=== PATIENT | female | born 1960 | race Caucasian/White ===

== ENCOUNTER 2022-07-02 12:53 | Emergency (ER) | payer BC ==
[~2022-07-02] VITALS: Ht 165.1 cm; Wt 73.5 kg
[~2022-07-02 12:53] MED LIST: PROM25TA27
[2022-07-02 12:58] VITALS: BP 134/81
[2022-07-02] MEDS ORDERED: BACI-416 TP (14:43)
[2022-07-02] MEDS ORDERED: NAPR-1704 PO (14:43)
[2022-07-02] MEDS ORDERED: KETOROLAC 30 MG/ML VIAL IM ONE (14:45)
[2022-07-02] MEDS ORDERED: BACITRACIN OINT 500 UNITS/GM PKT TP ONE (14:45)
[2022-07-02 15:00] VITALS: BP 129/77
--- NOTE | 2022-07-02 15:01 | NUR ---
ASSUMED PATIENT CARE FOR DISCHARGE INSTRUCTIONS. Patient discharged with v/s stable. Written and verbal after care instructions given and explained. Patient alert, oriented and verbalized understanding of instructions. Ambulatory with steady gait. All questions addressed prior to discharge. ID band removed. Patient advised to follow up with PMD. Rx of NAPROSYN, BACITRACIN given. Patient educated on indication of medication including possible reaction and side effects. Opportunity to ask questions provided and answered.
== END 2022-07-02 14:40 | disposition home or self-care (01) ==
LOC: MED 12:53
DX: S30.0XXA Contusion of lower back and pelvis, initial encounter (principal); S80.211A Abrasion, right knee, initial encounter; Z79.899 Other long term (current) drug therapy; W18.30XA Fall on same level, unspecified, initial encounter; Y93.89 Activity, other specified; Y92.89 Other specified places as the place of occurrence of the external cause; Y99.8 Other external cause status
CPT/HCPCS: 72100; 73562; 96372; 99284; J1885